=== PATIENT | male | born 1970 | race Asian ===

== ENCOUNTER 2016-09-03 06:40 | Emergency (ER) | payer SELFPAY ==
[~2016-09-03] VITALS: Ht 185.4 cm; Wt 133.4 kg
[2016-09-03 06:58] VITALS: BP 140/98
--- NOTE | 2016-09-03 07:17 | PHYS DOC ---
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 He states at that time he thinks that he started walking differently on his foot to help with the pain and discomfort. Patient states that he had also had a flareup of his gout at the same time with having pain in the right ankle area. She'll states that that is his normal area of having his gout symptoms. Patient states that everything cleared up until 2-3 days ago when he developed right medial ankle pain and discomfort. He states that it is continually hurt all the time. He denies any numbness or tingling into the toes. He has been taken ibuprofen for the pain and discomfort with minimal relief. Patient denies any history of injury or trauma to the ankle. Review of Systems Review of Systems Constitutional: Denies fever or chills [] Eyes: Denies change in visual acuity, redness, or eye pain [] HENT: Denies nasal congestion or sore throat [] Respiratory: Denies cough or shortness of breath [] Cardiovascular: No additional information not addressed in HPI [] GI: Denies abdominal pain, nausea, vomiting, bloody stools or diarrhea [] : Denies dysuria or hematuria [] Musculoskeletal: Denies back pain. C/o right ankle pain Integument: Denies rash or skin lesions [] Neurologic: Denies headache, focal weakness or sensory changes [] Current Medications Current Medications Current Medications Medications (Trade) Dose Ordered Sig/Saturnino Start Time Stop Time Status Last Admin Dose Admin Naproxen (Naprosyn) 500 mg 1X ONCE 09/03/16 07:30 09/03/16 07:31 DC 09/03/16 07:29 500 MG Allergies Allergies Allergies Coded Allergies Type Severity Reaction Last Updated Verified No Known Drug Allergies 09/03/16 No Physical Exam Physical Exam Constitutional: Well developed, well nourished, no acute distress, non-toxic appearance. [] HENT: Normocephalic, atraumatic, bilateral external ears normal, oropharynx moist, no oral exudates, nose normal. [] Eyes: PERRLA, EOMI, conjunctiva normal, no discharge. [] Neck: Normal range of motion, no tenderness, supple, no stridor. [] Cardiovascular:Heart rate regular rhythm, no murmur [] Lungs & Thorax: Bilateral breath sounds clear to auscultation [] Skin: Warm, dry, no erythema, no rash. [] Back: No tenderness Extremities: Right medial ankle tenderness, no cyanosis, no clubbing, ROM intact , no edema. Peripheral pulses 2+ cap refill brisk less than 2 seconds. Patient with good sensation noted to the toes. Patient is able to move the toes and the ankle without difficulty. He does have tenderness noted along the medial part of the right ankle. Slight swelling noted around the ankle area. No bruising or discoloration noted. Neurologic: Alert and oriented X 3, normal motor function, normal sensory function, no focal deficits noted. [] Psychologic: Affect normal, judgement normal, mood normal. [] Current Patient Data Vital Signs Vital Signs Date Time Temp Pulse Resp B/P Pulse Ox O2 Delivery O2 Flow Rate FiO2 09/03/16 06:58 97.6 77 18 100 Room Air 97.6 Lab Values Laboratory Tests Test 09/03/16 07:25 Uric Acid 6.4mg/dL (3.5-7.2) EKG EKG [] Radiology/Procedures Radiology/Procedures [][facility] [address] [place] [address] IMAGING REPORT Signed PATIENT: AILYN TORREZ ACCOUNT: [id number] : 1970 LOCATION: ER AGE: 46 SEX: M EXAM STATUS: REG ER ORD. PHYSICIAN: FUAD GODFREY APRN REASON: medial right ankle pain PROCEDURE: ANKLE RIGHT 3V Indication pain and swelling. No known injury. AP oblique and lateral views of the right ankle were obtained. There is considerable soft tissue swelling particularly medially. A bony abnormality is not seen. DICTATED and SIGNED BY: NIKOS GODWIN MD DATE: 09/03/16 0744 CC: FUAD GODFREY APRN; NO PCP ~ Course & Med Decision Making Course & Med Decision Making Pertinent Labs and Imaging studies reviewed. (See chart for details) Uric acid normal, right ankle x-ray normal with tissue swelling noted. Patient will be placed in an brent wrap with recommendations to wear the Brent wrap for the next 5-7 days. Also recommended ice packs and elevation as much as possible. Patient will be discharged home in stable condition with recommendations to use ibuprofen 800 mg every 8 hours. Patient was encouraged to take this with food to prevent GI upset. Patient was provided with signs and symptoms to return back to the emergency department. Patient will be discharged home in stable condition. Patient agrees with discharge instructions treatment regimen and follow-up recommendations. [] Dragon Disclaimer Dragon Disclaimer This electronic medical record was generated, in whole or in part, using a voice recognition dictation system. Departure Departure Impression: Primary Impression: Ankle pain, right Disposition: 01 HOME, SELF-CARE Condition: STABLE Patient Instructions: Ankle Pain Additional Instructions: Activity as tolerated Ibuprofen 800 mg every 8 hours with food, stop taking if you develop upset stomach Wear the brent wrap for the next 5-7 days Ice packs on 20 minutes and off 20 minutes several times a day Elevation as much as possible Followup with orthopedic as needed in the next 5-7 days Return to emergency department as needed for signs and symptoms that become worse. FUAD GODFREY APRN Sep 03, 2016 07:17
[2016-09-03] MEDS ORDERED: NAPROXEN 500 MG TABLET PO ONE (07:30)
--- NOTE | 2016-09-03 07:49 | RAD ---
Indication pain and swelling. No known injury. AP oblique and lateral views of the right ankle were obtained. There is considerable soft tissue swelling particularly medially. A bony abnormality is not seen.
== END 2016-09-03 08:21 | disposition home or self-care (01) ==
LOC: ER 06:40
DX: M25.571 Pain in right ankle and joints of right foot (principal); J45.909 Unspecified asthma, uncomplicated; M10.9 Gout, unspecified
CPT/HCPCS: 36415; 73610; 84550; 99285